=== PATIENT | male | born 2000 | race Caucasian/White ===

== ENCOUNTER 2022-06-16 18:17 | Emergency (ER) | payer OTHER ==
[~2022-06-16] VITALS: Ht 172.7 cm; Wt 55.5 kg
[2022-06-16 18:41] VITALS: BP 138/84
[2022-06-16 18:45] VITALS: BP 118/71
[2022-06-16 19:00] VITALS: BP 114/85
[2022-06-16 19:15] VITALS: BP 117/67
[2022-06-16 19:30] VITALS: BP 124/75
[2022-06-16 20:48] VITALS: BP 124/75
== END 2022-06-16 21:09 | disposition home or self-care (01) | DRG 914 ==
LOC: ED 18:17
DX: S09.90XA Unspecified injury of head, initial encounter (principal); W20.8XXA Other cause of strike by thrown, projected or falling object, initial encounter; Y93.H9 Activity, other involving exterior property and land maintenance, building and construction; Y99.0 Civilian activity done for income or pay